=== PATIENT | female | born 2000 | race Native Hawaiian/Other Pacific Islander ===

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

== ENCOUNTER 2021-01-10 08:01 | Outpatient (CLI) | payer BC, OTHER | END 2021-01-10 10:00 | disposition home or self-care (01) | LOC: NM 08:01 | PROVIDERS: ATTEND Nurse Practitioner Family | DX: R10.11 Right upper quadrant pain (principal) | CPT/HCPCS: A9537 ==

== ENCOUNTER 2021-03-22 15:49 | Outpatient (CLI) | payer BC, OTHER | END 2021-03-22 20:55 | disposition home or self-care (01) | LOC: RAD 15:49 | PROVIDERS: ATTEND Nurse Practitioner Family | DX: K59.00 Constipation, unspecified (principal) ==